=== PATIENT | female | born 1965 | race Two or more races ===

== ENCOUNTER 2023-04-12 13:46 | Emergency (ER) | payer OTHER ==
[~2023-04-12] VITALS: Ht 157.5 cm; Wt 47.6 kg
[2023-04-12] MEDS ORDERED: CRESTOR5 MG PO (13:58)
[2023-04-12] MEDS ORDERED: SYMBALTA (13:58)
[2023-04-12] MEDS ORDERED: GABAPENTIN300 M2 PO (13:58)
[2023-04-12] MEDS ORDERED: ENDOMETRIN100 MG (13:59)
[2023-04-12] MEDS ORDERED: LEVOTHYROXINE25 MCG (13:59)
[2023-04-12 18:35] LABS: HEMATOCRIT 35.9 % (36.0-45.00); HEMOGLOBIN 11.9 g/dL (12.0-15.00); MEAN CELL VOLUME 99.7 fL (80.00-100.00); MEAN CORPUSCULAR HEMOGLOBIN 33.1 pg (27.00-32.0); MEAN CORPUSCULAR HGB CONC 33.2 g/dl (32.0-36.0); PLATELET COUNT 261 K/uL (150-450); RED CELL DISTRIBUTION WIDTH 13.4 % (11.5-14.5)
[2023-04-12 19:11] LABS: CALCIUM 9.1 mg/dL (8.5-10.1); CREATININE SERUM 0.68 mg/dL (0.55-1.02); GFR 89.5; POTASSIUM 4.84 mEq/L (3.5-5.1)
== END 2023-04-12 19:57 | disposition home or self-care (01) ==
LOC: ER 13:46
PROVIDERS: Nurse Practitioner Family
DX: R53.1 Weakness (principal); R00.2 Palpitations; Z88.2 Allergy status to sulfonamides; M79.7 Fibromyalgia; E03.9 Hypothyroidism, unspecified